=== PATIENT | female | born 1985 | race Caucasian/White ===

== ENCOUNTER 2016-12-05 19:40 | Emergency (ER) | payer OTHER ==
[~2016-12-05] VITALS: Ht 157.5 cm; Wt 52.2 kg
[~2016-12-05 19:40] MED LIST: AMOXICILLIN250 MG PO; ANBESOL9 G1 MM; AUGMENTIN 875-1 EACH PO; EXPECTA PRENAT1 EACH PO; IBUPROFEN600 MG PO; MELOXICAM15 MG PO; METHERGINE0.2 MG PO; METRONIDAZOLE500 MG PO; NAPROXEN500 MG PO; PERCOCET 5-3251 EACH PO; TRAMADOL HCL50 MG PO; ZANTAC 7575 MG PO; ZOFRAN4 MG PO
[2016-12-05] MEDS ORDERED: TRAMADOL HCL50 MG PO (20:40)
== END 2016-12-05 20:51 | disposition home or self-care (01) ==
LOC: ED 19:40
DX: S29.011A Strain of muscle and tendon of front wall of thorax, initial encounter (principal); F17.200 Nicotine dependence, unspecified, uncomplicated; W22.8XXA Striking against or struck by other objects, initial encounter
CPT/HCPCS: 71020; 99283

== ENCOUNTER 2017-01-14 18:37 | Emergency (ER) | payer OTHER ==
[~2017-01-14] VITALS: Ht 157.5 cm; Wt 52.2 kg
--- NOTE | 2017-01-15 11:08 | EKG ---
[facility] [address] [facility] [place] [address] Signed Normal sinus rhythm with sinus arrhythmia Normal ECG No previous ECGs available Confirmed by KAT PALENCIA MD ([id number]) on 01/15/2017 11:08:11 AM Electronically Signed By: KAT PALENCIA MD 01/15/17 1108 PATIENT NAME: BRADEN BEJARANO Electrocardiogram DATE OF : 85 PHYSICIAN: KAT PALENCIA MD REPORT #: [id number] REPORT IS CONFIDENTIAL AND NOT TO BE RELEASED WITHOUT AUTHORIZATION
== END 2017-01-14 20:18 | disposition home or self-care (01) ==
LOC: ED 18:37
DX: E86.0 Dehydration (principal); R07.89 Other chest pain; F17.200 Nicotine dependence, unspecified, uncomplicated
CPT/HCPCS: 80053; 84484; 85025; 96361; 96374; 99283; J2060; J7030

== ENCOUNTER 2017-07-10 13:49 | Emergency (ER) | payer OTHER ==
[~2017-07-10] VITALS: Ht 157.5 cm; Wt 54.4 kg
[2017-07-10] MEDS ORDERED: RITALIN5 MG PO (14:03)
[2017-07-10] MEDS ORDERED: ZITHROMAX250 MG PO (14:15)
[2017-07-10] MEDS ORDERED: NORCO 5-325 TA1 EACH PO (14:15)
== END 2017-07-10 14:24 | disposition home or self-care (01) ==
LOC: ED 13:49
DX: J32.9 Chronic sinusitis, unspecified (principal); F17.200 Nicotine dependence, unspecified, uncomplicated; Z79.899 Other long term (current) drug therapy
CPT/HCPCS: 99283

== ENCOUNTER 2017-07-21 17:41 | Emergency (ER) | payer OTHER ==
[~2017-07-21] VITALS: Ht 157.5 cm; Wt 54.4 kg
[~2017-07-21 17:41] MED LIST changes: +NORCO 5-325 TA1 EACH PO; +RITALIN5 MG PO; +ZITHROMAX250 MG PO
[2017-07-21] MEDS ORDERED: IBUPROFEN600 MG PO (18:15)
== END 2017-07-21 19:24 | disposition home or self-care (01) ==
LOC: ED 17:41
DX: R68.84 Jaw pain (principal); G89.29 Other chronic pain; F17.200 Nicotine dependence, unspecified, uncomplicated; Z79.899 Other long term (current) drug therapy; Z87.81 Personal history of (healed) traumatic fracture
CPT/HCPCS: 99282

== ENCOUNTER 2019-07-20 10:20 | Emergency (ER) | payer SELFPAY ==
[~2019-07-20] VITALS: Ht 157.5 cm; Wt 63.5 kg
[~2019-07-20 10:20] MED LIST changes: +CYCLOBENZAPRINE5 MG PO; +FLONASE ALLERG9.9 ML NAS; +NAPROSYN500 MG PO
--- OUTSIDE RECORDS SUMMARY | 2019-07-20 10:22 | XMS ---
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 Care History Substance Use/Overdose 07/22/2017 [facility] Care Recommendation: - Patient has not seen Dr Shields and is not an established patient - Patient does not have a PCP at this current time please refer patient to a PCP for medication refills. - USE EXTREME CAUTION IN GIVING NARCOTICS TO THIS PATIENT. - Avoid Discharge Narcotic prescriptions if at all possible. Please use clinical judgement. This patient has had 5 or more Emergency Department visits in the last 12 months.\T\nbsp; Patient requires education on the scope and purpose of the ED as an acute care provider not a Primary Care Provider and should not be utilized for chronic conditions.\T\nbsp; If patient returns to ED please contact Community Health WorkerJoanna at [phone]. These are guidelines and the provider should exercise clinical judgment when providing care. E.D. VISIT COUNT (12 MO.) 1 [facility]PPER Bojorquez TOTAL 1 NOTE: Visits indicate total known visits. ED/UCC VISIT TRACKING (12 MO.) 07/20/2019 10:20 [facility] [place] TYPE: Emergency COMPLAINT: - COUGH INPATIENT VISIT TRACKING (12 MO.) No inpatient visits to display in this time frame [id number]
== END 2019-07-20 11:38 | disposition home or self-care (01) ==
LOC: ED 10:20
DX: J02.9 Acute pharyngitis, unspecified (principal)

== ENCOUNTER 2023-01-25 16:57 | Emergency (ER) | payer OTHER ==
[~2023-01-25] VITALS: Ht 157.5 cm; Wt 66.1 kg
[2023-01-25 17:25] LABS: BILIRUBIN, URINE POSITIVE (negative); BLOOD/HGB, URINE LARGE (Negative); KETONE, URINE TRACE (Negative); LEUK ESTERASE, URINE MODERATE (negative); NITRITE, URINE POSITIVE (negative); PH, URINE 6.5 (5-7)
[2023-01-25 17:34] LABS: RED BLOOD CELLS, URINE >50 /hpf (0-5); WHITE BLOOD CELLS, URINE >50 /HPF (0-5)
[2023-01-25 17:35] LABS: BACTERIA, URINE 1+ /hpf (negative); CASTS, URINE NONE SEEN \\lpf; COLLECTION TYPE, URINE CLEAN CATCH; CRYSTALS, URINE NONE SEEN (0-1+); EPITHELIAL CELLS, URINE SQUAMOUS 1+ /lpf (0-1+); REFLEX CULTURE, URINE Yes (No)
[2023-01-25 17:52] LABS: BASOPHILS 0.1 % (0-2); EOSINOPHILS 0.6 % (0-6); HEMOGLOBIN 13.6 g/dL (12.0-18.0); LYMPHOCYTES 8.4 % (24-44); MCH 32.6 (27-36); MCHC 33.3 g/dl (30-36); MCV 97.9 fl (81-99); MONOCYTES 5.6 % (0-12); NEUTROPHILS 85.3 % (39-80); PLATELET COUNT 228 K/uL (140-440); RBC 4.19 M/ul (4.3-5.7); RDW 13.3 (10.5-15.0)
[2023-01-25 18:08] LABS: ALBUMIN 3.2 g/dL (3.4-5.0); ALBUMIN/GLOBULIN RATIO 0.86 (1.1-2.4); ANION GAP 12.3 (7-21); BILIRUBIN, TOTAL 0.3 ng/dL (0.2-1.0); BUN/CREATININE RATIO 13.54 (6.0-28.6); CALCIUM 8.8 mg/dL (8.5-10.1); CREATININE, SERUM 0.96 mg/dL (0.55-1.02); POTASSIUM 3.3 mmol/L (3.5-5.1); PROTEIN, TOTAL 6.9 g/dL (6.4-8.2)
[2023-01-25] MEDS ORDERED: CEPHALEXIN500 M1 PO (19:07)
[2023-01-25] MEDS ORDERED: PYRIDIUM200 MG PO (19:07)
[2023-01-25 19:24] VITALS: BP 125/77
== END 2023-01-25 19:25 | disposition home or self-care (01) ==
LOC: ED 16:57
PROVIDERS: Emergency Medicine
DX: N39.0 Urinary tract infection, site not specified (principal); R35.0 Frequency of micturition; R31.9 Hematuria, unspecified; F17.200 Nicotine dependence, unspecified, uncomplicated
CPT/HCPCS: 36415; 80053; 81001; 85025; 99283; A9270; J7030

== ENCOUNTER 2024-04-28 16:47 | Emergency (ER) | payer OTHER ==
[~2024-04-28] VITALS: Ht 157.5 cm; Wt 68.0 kg
[~2024-04-28 16:47] MED LIST changes: +CEFDINIR300 MG PO; +CEPHALEXIN500 M1 PO; +CYCLOBENZAPRINE10 MG PO; +ONDANSETRON ODT8 MG PO; +PYRIDIUM200 MG PO
[2024-04-28 19:40] LABS: BASOPHILS 0.3 % (0-2); EOSINOPHILS 1.3 % (0-6); HEMATOCRIT 40.6 % (35.0-50.0); HEMOGLOBIN 13.7 g/dL (12.0-18.0); LYMPHOCYTES 27.4 % (24-44); MCH 32.3 (27-36); MCHC 33.6 g/dl (30-36); MONOCYTES 6.2 % (0-12); NEUTROPHILS 64.8 % (39-80); PLATELET COUNT 227 K/uL (140-440); RBC 4.23 M/ul (4.3-5.7); RDW 12.5 (10.5-15.0)
[2024-04-28 19:42] LABS: BILIRUBIN, URINE NEGATIVE (negative); BLOOD/HGB, URINE NEGATIVE (Negative); KETONE, URINE NEGATIVE (Negative); LEUK ESTERASE, URINE NEGATIVE (negative); NITRITE, URINE NEGATIVE (negative)
[2024-04-28] MEDS ORDERED: ondansetron HCL 4 MG/2 ML VIAL IV ONE (19:45)
[2024-04-28 19:54] LABS: ALBUMIN 4.1 g/dL (3.4-5.0); ALBUMIN/GLOBULIN RATIO 1.24 (1.1-2.4); ANION GAP 14.1 (7-21); BILIRUBIN, TOTAL 0.7 ng/dL (0.2-1.0); BUN/CREATININE RATIO 7.24 (6.0-28.6); CALCIUM 8.9 mg/dL (8.5-10.1); CREATININE, SERUM 0.69 mg/dL (0.55-1.02); POTASSIUM 4.1 mmol/L (3.5-5.1); PROTEIN, TOTAL 7.4 g/dL (6.4-8.2)
[2024-04-28 21:00] VITALS: BP 107/69
== END 2024-04-28 21:12 | disposition home or self-care (01) ==
LOC: ED 16:47
PROVIDERS: Internal Medicine
DX: R10.33 Periumbilical pain (principal); N83.202 Unspecified ovarian cyst, left side; F17.200 Nicotine dependence, unspecified, uncomplicated
CPT/HCPCS: 36415; 74177; 80053; 81003; 83690; 84703; 85025; 99284-25; J2405; Q9967

== ENCOUNTER 2024-09-09 12:00 | Emergency (ER) | payer OTHER ==
[~2024-09-09] VITALS: Ht 157.5 cm; Wt 66.8 kg
[2024-09-09 14:55] VITALS: BP 108/67
== END 2024-09-09 14:55 | disposition home or self-care (01) ==
LOC: ED 12:00
DX: K42.9 Umbilical hernia without obstruction or gangrene (principal); F17.200 Nicotine dependence, unspecified, uncomplicated
CPT/HCPCS: 99283

== ENCOUNTER 2025-02-15 09:19 | Day surgery (SDC) | payer BC ==
[~2025-02-15] VITALS: Ht 157.5 cm; Wt 68.0 kg
[~2025-02-15 09:19] MED LIST changes: +CEFAZOLIN SODIUM 2 GM in SODIUM CHLORIDE 0.9% 100 ML IV SCH; +IBLOOD GLUCOSE TEST STRIP 1 EA TEST VI PRN; +LACTATED RINGER'S 1,000 ML IV SCH; +LIDOCAINE HCL 1% 5 ML SDV INJ ONE; +SEVOFLURANE 250 ML BTL INH ONE
[2025-02-15 09:46] VITALS: BP 106/64
--- NOTE | 2025-02-15 11:13 | NUR ---
1100 UPDATED PT ON WAIT TIME. PT UNDERSTANDING. PT NEEDS NOTHING AT THIS TIME. CALL LIGHT WITHIN REACH, PERSONAL ITEMS WITHIN REACH AND BED IS LOW AND LOCKED.
[2025-02-15] MEDS ORDERED: Ropivacaine HCl 0.5% 30 ML VIAL ONE ×2 (11:17→14:22)
[2025-02-15] MEDS ORDERED: SODIUM CHLORIDE 0.9% 40 ML IV ONE (11:17)
[2025-02-15] MEDS ORDERED: DEXAMETHASONE SOD PHOS 4 MG/ML VIAL ONE (11:18)
[2025-02-15] MEDS ORDERED: LIDOCAINE HCL 2% 5 ML SDV ONE ×2 (11:18→11:43)
[2025-02-15] MEDS ORDERED: MIDAZOLAM HCL 2 MG/2 ML VIAL ONE (11:18)
[2025-02-15] MEDS ORDERED: ACETAMINOPHEN 1,000 MG/100 ML VIAL ONE (11:43)
[2025-02-15] MEDS ORDERED: SUGAMMADEX SODIUM 200 MG/2 ML ML ONE (11:43)
[2025-02-15] MEDS ORDERED: LIDOCAINE HCL 2% 20 MG/ML VIAL INJ ONE (11:43)
[2025-02-15] MEDS ORDERED: KETOROLAC TROMETHAMINE 30 MG/ML VIAL ONE (11:43)
[2025-02-15] MEDS ORDERED: ROCURONIUM BROMIDE 50 MG/5 ML SYR ONE ×2 (11:43→13:13)
[2025-02-15] MEDS ORDERED: fentaNYL citrate 100 MCG/2 ML VIAL ONE (11:43)
[2025-02-15] MEDS ORDERED: PROCHLORPERAZINE EDISYLATE 10 MG/2 ML VIAL IV PRN (12:00)
[2025-02-15] MEDS ORDERED: NALOXONE HCL 0.4 MG SYR IV PRN (12:00)
[2025-02-15] MEDS ORDERED: HYDROmorphone HCL 1 MG/ML SYR IV PRN (12:00)
[2025-02-15] MEDS ORDERED: fentaNYL citrate 50 MCG/ML SDV IV PRN (12:00)
[2025-02-15] MEDS ORDERED: IBLOOD GLUCOSE TEST STRIP 1 EA TEST VI PRN (12:00)
[2025-02-15] MEDS ORDERED: SODIUM CHLORIDE 0.9% 20 ML IV ONE (14:22)
--- NOTE | 2025-02-15 14:28 | NUR ---
02/15/25 1428 Mary Anne Castillo 1414-PATIENT ARRIVED TO PACU ON 6L MASK RR EVEN NONAROUSABLE ORAL AIRWAY IN PLACE. BINDER IN PLACE KARLA DRAIN SANGUINOUS DRAINAGE. PATIENT BECOMING REACTIVE ORAL AIRWAY REMOVED AT 1415. 1416-PATIENT REACHING FOR OXYGEN MASK WINCING. O2 REMOVED REPORTING PAIN TO ABDOMEN. "9" WHEN ASKED ABOUT PAIN 1420-PATIENT MEDICATED PER EMAR. 1426-LILIANA FERRY BOAT CAPTAIN AT BEDSIDE DOING BLOCK. INCISION INTACT. REPORTS PAIN "7"
[2025-02-15 15:09] VITALS: BP 111/71
--- NOTE | 2025-02-15 15:24 | NUR ---
1505 PT ARRIVED TO DAY SURGERY FROM PACU VIA STREACHER. PT REPORTS TOLERABLE 3/10 PAIN AND NO NAUSEA. PT HAS DIAN DRAIN IN PLACE IN UPPER LEFT QUAD IN ABDOMEN DRAINING RED DRAIANGE INTO DRAIN. PT HAS WATER AND CRACKERS AT BEDSIDE. 1510 PT REPORTS THE URGE TO URINATE. PT ABLE TO ROLL ONTO SIDE AND SIT UP IN BED WITH ABDOMEN BINDER ON. PT ABLE TO AMBULATE TO BATHROOM WITH MINIMAL ASSISTANCE AND VOID 300 MLS OF CLEAR YELLOW URINE. PT REPORTS THAT PAIN AFTER AMBULATING IS TOLERABLE 4/10. PT ABLE TO AMBULATE BACK TO BED. PT BACK IN BED WITH CALL LIGHT WITHIN REACH, SNACKS AT BEDSIDE AND BED IS LOW AND LOCKED.
--- NOTE | 2025-02-15 15:42 | NUR ---
1538 CALLED AND SPOKE WITH . VERBAL ORDER TAKEN FOR ONE NARCO 5/325 PO EVERY 4 HOURS NEEDED FOR PAIN. AND ZOFRAN 4MG IV PRN EVERY [address] NAUSEA. DR REQUEST THAT WHOEVER COMES TO [facility] PATIENT WAIT TO HAVE DR COME DOWN AND SPEAK WITH THEM REGARDING AT HOME INSTRUCTIONS.
[2025-02-15] MEDS ORDERED: HYDROCODONE/ACETA 5/325 TAB PO PRN (15:45)
[2025-02-15 16:20] VITALS: BP 95/57
--- NOTE | 2025-02-15 17:00 | NUR ---
1605 BOYFRIEND IN ROOM. CALLED TO NOTIFY PER REQUEST FOR DOC TO TALK TO CAREGIVER FOR PT. 1620 DOC IN ROOM GIVING VERBAL INSTRUCATIONS TO PT AND PT BOYFRIEND FOR DRAIN AND AFTER CARE. HOURLY ROUNDING DONE WITH PT. PT REPORTS TOLERABLE 3/10 PAIN AND NO NAUSEA AT THIS TIME. 1640 DISCHARGE INFORMATION GONE OVER WITH PT AND BOYFRIEND. FMLA PAPERWORK GIVEN TO PT. PRESCRIPTION GIVEN TO PT. DISCHARGE PAPERWORK GIVEN TO PATIENT. IV DISCONTINUED FOR DISCHARGE WRAPPED WITH GAUZE AND COBAN. KARLA DRAIN DRAINED, 15 MLS OF SANGUINOUS FLUID DRAINED. 1655 PT DISCHARGED FROM DAY SURGERY, PT ABLE TO AMBULATE TO BATHROOM AND VOID WITHOUT ASSISTANCE. PT ABLE TO CHANGE ON OWN, PT ABLE TO AMBULATE TO WHEELCHAIR. PT DISCHARGED FROM DAY SURGERY VIA WHEELCHAIR TO THE FRONT OF THE HOSPITAL TO PT'S BOYFRIENDS CAR. PT AND BOYFRIEND HAVE NO QUESTIONS AT THIS TIME.
--- NOTE | 2025-02-16 15:02 | EKG ---
[facility] [address] [place] [address] Signed Normal sinus rhythm Normal ECG When compared with ECG of 14-APR-2023 19:14, Vent. rate has decreased BY 65 BPM Confirmed by Kobe Alberto MD () on 02/16/2025 3:02:10 PM Electronically Signed By: KOBE ALBERTO MD 02/16/25 1502 PATIENT NAME: BEJARANOBRADEN SANTOSH Electrocardiogram DATE OF : 85 PHYSICIAN: KOBE ALBERTO MD REPORT #: [id number] REPORT IS CONFIDENTIAL AND NOT TO BE RELEASED WITHOUT AUTHORIZATION
--- NOTE | 2025-02-17 15:54 | PATH ---
[facility] [address] [place], [place] [address] Signed SPECIMEN(S): A INCARCERATED OMENTUM HERNIA SPECIMEN SOURCE: A. INCARCERATED OMENTUM HERNIA CLINICAL HISTORY: Ventral hernia FINAL PATHOLOGIC DIAGNOSIS: Tissue from ventral hernia, herniorrhaphy: - Benign fat with areas of fibrosis. - No abscess, granuloma, or malignancy identified. [facility] MICROSCOPIC EXAMINATION: Histologic sections of all submitted blocks are examined by light microscopy. These findings, together with the gross examination, support the pathologic diagnosis. GROSS DESCRIPTION: The specimen, labeled and designated "[place], incarcerated omentum hernia," is received in formalin and consists of two portions of yellow-sarabia lobulated fatty tissue and sarabia-pink membranous soft tissue (2.8 x 2.6 x 1.7 cm, and 5.5 x 3.4 x 1.5 cm). The tissues are differentially inked blue and black respectively, and serially sectioned to reveal yellow-sarabia lobulated fatty and pink-sarabia soft cut surfaces. [place] Straightener Stamper sections are submitted in cassette (A1-A3). VB (under the direct supervision of a pathologist) The Gross Description was prepared using a voice recognition system. The report was reviewed for accuracy; however, sound-alike word errors, addition and/or deletions may occur. If there is any question about this report, please contact Client Services. ADDITIONAL NOTES: Immunohistochemical and/or in situ hybridization studies if performed in this case included appropriate positive controls that reacted as expected. This test was developed and its performance characteristics determined by [facility]. It has not been cleared or approved by the U.S. Food and Drug Administration. The FDA has determined that such clearance or approval is not necessary. This test is used for clinical purposes. It should not be regarded PATIENT NAME: BRADEN BEJARANO PATHOLOGY DATE OF : 85 REPORT #: [id number] PHYSICIAN: SANDRA PATHOLOGY PCP: APURVA CHAVEZ PA-C REPORT IS CONFIDENTIAL AND NOT TO BE RELEASED WITHOUT AUTHORIZATION [facility] [address] [place], [place] [address], [place] [address] Signed as investigational or for research. [facility] is certified under the Clinical Laboratory Improvement Amendments of 1988 (CLIA) as qualified to perform high complexity clinical laboratory testing. PERFORMING LABORATORY: Technical component was performed by [facility], [address] [place] [id number] (CLIA# [id number]). [facility], [address] [place] [phone] (CLIA#: [id number]). Diagnostician: Malachi Chavira MD Pathologist Electronically Signed 02/17/2025 Copies: ~ PATIENT NAME: BRADEN BEJARANO PATHOLOGY DATE OF : 85 REPORT #: [id number] PHYSICIAN: SANDRA PATHOLOGY PCP: APURVA CHAVEZ PA-C REPORT IS CONFIDENTIAL AND NOT TO BE RELEASED WITHOUT AUTHORIZATION
== END 2025-02-15 16:55 | disposition home or self-care (01) ==
LOC: DS 09:19
PROVIDERS: ATTEND Surgery
PROC: 0WUF0JZ Supplement Abdominal Wall with Synthetic Substitute, Open Approach (ICD-10-PCS; principal; 2025-02-15 10:00)
DX: K43.6 Other and unspecified ventral hernia with obstruction, without gangrene (principal); G89.18 Other acute postprocedural pain; F17.290 Nicotine dependence, other tobacco product, uncomplicated
CPT/HCPCS: 00750; 88302; 93005; 93010; C1781; J0131; J0688; J1100; J1885; J2003; J2250; J2405; J2704; J2795; J3010; J3490